=== PATIENT | male | born 1995 | race Caucasian/White ===

== ENCOUNTER 2023-02-01 06:15 | Emergency (ER) | payer SELFPAY ==
[~2023-02-01] VITALS: Ht 170.2 cm; Wt 81.6 kg
[2023-02-01 06:17] VITALS: BP 159/87; PULSE 97; RESP 16; TEMP 97.4; O2SAT 100
[2023-02-01] MEDS ORDERED: BACITRACIN OINT 500 UNITS/GM PKT TP ONE (06:40)
[2023-02-01 06:52] VITALS: BP 159/87; PULSE 97; RESP 16; TEMP 97.4; O2SAT 100
== END 2023-02-01 06:52 ==
LOC: MED 06:15
DX: T22.111A Burn of first degree of right forearm, initial encounter (principal); V49.88XA Car occupant (driver) (passenger) injured in other specified transport accidents, initial encounter; Y93.89 Activity, other specified; Y92.89 Other specified places as the place of occurrence of the external cause; Y99.8 Other external cause status
CPT/HCPCS: 99283